=== PATIENT | male | born 1990 | race American Indian/Alaskan Native ===

== ENCOUNTER 2019-08-10 02:42 | Emergency (ER) | payer OTHER ==
--- NOTE | 2019-08-10 03:57 | XRay Report ---
CHEST 2 VIEWS INDICATION / CLINICAL INFORMATION: Dry cough SOB 1-2 weeks. COMPARISON: None available. FINDINGS: SUPPORT DEVICES: None. HEART / MEDIASTINUM: No significant abnormality. LUNGS / PLEURA: No significant pulmonary or pleural abnormality. No pneumothorax. ADDITIONAL FINDINGS: No significant additional findings. IMPRESSION: 1. No acute findings. Signer Name: Herve Campa MD Signed: 08/10/2019 3:52 AM Workstation Name: [id number]
--- NOTE | 2019-08-10 06:34 | Emergency Department Report ---
ED Chest Pain HPI - General Chief Complaint: Chest Pain Stated Complaint: CHEST PAIN Time Seen by Provider: 08/10/19 06:18 Source: patient Mode of arrival: Ambulatory Limitations: No Limitations - History of Present Illness Initial Comments: 28-year-old [place] male presents to the emergency department with complaint of some intermittent midsternal chest pain, dizziness, occasional dry cough and some recent nausea with vomiting. Overall the symptoms going on for the past 3-4 weeks. He says he was seen at a [facility] last week and diagnosed with p neumonia and flu and placed on "multiple medications" but says he is not feeling any better. He says that he will have vomiting after he tries to eat any food but does not have any significant abdominal pain. He is a tobacco smoker but denies any illicit drug use. No recent travel or sick contacts at home. He does not have a primary care physician. Denies any past medical history. No significant family history. - Related Data Previous Rx's Medication Instructions Recorded Last Taken Type Ondansetron [Zofran Odt] 4 mg PO Q8HR PRN #15 tab.rapdis 08/10/19 Unknown Rx Allergies Allergy/AdvReac Type Severity Reaction Status Date / Time No Known Allergies Allergy Unverified 08/10/19 02:53 Heart Score - HEART Score History: Slightly suspicious EKG: Non-specific Age: < 45 Risk factors: 1-2 risk factors Troponin: < normal limit HEART Score: 2 - Critical Actions Critical Actions: 0-3 pts:0.9-1.7%risk of adverse cardiac event.Candidate for discharge ED Review of Systems ROS: Stated complaint: CHEST PAIN Other details as noted in HPI Comment: All other systems reviewed and negative Constitutional: denies: chills, fever Eyes: denies: eye pain, vision change ENT: denies: ear pain, throat pain Respiratory: cough. denies: wheezing Cardiovascular: chest pain. denies: palpitations, edema Gastrointestinal: vomiting. denies: abdominal pain Genitourinary: denies: dysuria, discharge Musculoskeletal: denies: back pain, arthralgia Skin: denies: rash, lesions Neurological: denies: headache, weakness ED Past Medical Hx - Past Medical History Previous Medical History?: No - Surgical History Past Surgical History?: No - Social History Smoking Status: Current Every Day Smoker - Medications Home Medications: Home Medications Medication Instructions Recorded Confirmed Last Taken Type Ondansetron [Zofran Odt] 4 mg PO Q8HR PRN #15 tab.rapdis 08/10/19 Unknown Rx ED Physical Exam - General Limitations: No Limitations - Other Other exam information: GENERAL: The patient is well-developed well-nourished. HENT: Normocephalic. Atraumatic. Patient has moist mucous membranes. EYES: Extraocular motions are intact. NECK: Supple. Trachea is midline. CHEST/LUNGS: Clear to auscultation. There is no respiratory distress noted. HEART/CARDIOVASCULAR: Regular. There is no tachycardia. There is no murmur. ABDOMEN: Abdomen is soft, nontender. Patient has normal bowel sounds. There is no abdominal distention. SKIN: Skin is warm and dry. NEURO: The patient is awake, alert, and oriented. The patient is cooperative. The patient has no focal neurologic deficits. Normal speech. MUSCULOSKELETAL: There is no tenderness or deformity. There is no limitation range of motion. There is no evidence of acute injury. ED Course Vital Signs 08/10/19 08/10/19 02:47 08:54 Temperature 98.4 F Pulse Rate 105 H 90 Respiratory 18 16 Rate Blood Pressure 139/70 Blood Pressure 134/68 [Left] O2 Sat by Pulse 97 98 Oximetry CHAPIN score - Chapin Score Age > 65: (0) No Aspirin use within the Past 7 Days: (0) No 3 or more CAD Risk Factors: (0) No 2 or more Angina events in past 24 hrs: (1) Yes Known CAD with more than 50% Stenosis: (0) No Elevated Cardiac Markers: (0) No ST Deviation Greater than 0.5mm: (0) No CHAPIN Score: 1 ED Medical Decision Making - Lab Data Result diagrams: 08/10/19 07:07 08/10/19 07:09 - EKG Data -: EKG Interpreted by Me EKG shows normal: sinus rhythm, axis (left axis deviation), intervals, QRS complexes (q waves inferior leads), ST-T waves Rate: normal - EKG Data When compared to previous EKG there are: previous EKG unavailable Interpretation: other (sinus, rate 87 bpm, q waves inferior leads) - Radiology Data Radiology results: image reviewed interpreted by me: Chest x-ray does not show any acute process. There are no pleural effusions, obvious pneumonia and there is no pneumothorax. - Medical Decision Making This patient presents to the emergency department with complaint of some intermittent chest pains, vomiting after eating, body aches and some other nonspecific symptoms. His EKG shows some Q waves to the inferior leads but otherwise there is no ST elevation PA or dysrhythmia. His labs have been unremarkable according CBC, metabolic panel and troponin level. Chest x-ray did not show any pleural effusions, pneumothorax, pneumonia, focal consolidation, or any other acute process. The patient does not have any current chest discom fort. The patient is low on the heart and CHAPIN score. Patient is low on the well's score criteria and does not have any risk factors for thromboembolic disease. His vital signs are stable throughout his ED course. For all these reasons the patient appears safe for discharge home at this time. He has been given referrals with primary care and cardiology. He will return to the emergency Department with any worsening of his symptoms or any acute distress. - Differential Diagnosis costochondritis, PA, viral URI, cholelithiasis, pancreatitis Critical Care Time: No Critical care attestation.: If time is entered above; I have spent that time in minutes in the direct care of this critically ill patient, excluding procedure time. ED Disposition Clinical Impression: Intermittent chest pain, Viral syndrome Vomiting Qualifiers: Vomiting type: unspecified Vomiting Intractability: non-intractable Nausea presence: unspecified Qualified Code(s): R11.10 - Vomiting, unspecified Disposition: DC-01 TO HOME OR SELFCARE Is pt being admited?: No Condition: Stable Instructions: Chest Pain (ED), Acute Nausea and Vomiting (ED), Viral Syndrome (ED) Additional Instructions: Please follow-up with a primary care physician in the next few days. I'm giving you a referral for a local heart doctor, Dr. Cid, to follow up regarding your intermittent chest pains. Return to the emergency Department with any worsening of your symptoms or any acute distress. Prescriptions: Ondansetron [Zofran Odt] 4 mg PO Q8HR PRN #15 tab.rapdis PRN Reason: Nausea Referrals: PRIMARY CARE, [Primary Care Provider] - 2-3 Days MARQUISE BATISTA MD [Staff Physician] - 2-3 Days MEENU CID MD [Staff Physician] - 2-3 Days [facility] [Outside] - 2-3 Days Time of Disposition: 08:28
[2019-08-10 07:52] LABS: Basophils % (Auto) 0.2 % (0.0-1.8); Eosinophils % (Auto) 0.1 % (0.0-4.3); Hematocrit 32.6 % (35.5-45.6); Lymphocytes # (Auto) 0.7 K/mm3 (1.2-5.4); Lymphocytes % (Auto) 14.3 % (13.4-35.0); Mean Corpuscular HGB Conc 34 % (32-34); Mean Corpuscular Volume 86 fl (84-94); Monocytes # (Auto) 0.4 K/mm3 (0.0-0.8); Monocytes % (Auto) 7.2 % (0.0-7.3); Platelet Count 359 K/mm3 (140-440); Red Blood Count 3.81 M/mm3 (3.65-5.03); Red Cell Distribution Width 13.3 % (13.2-15.2)
[2019-08-10 08:02] LABS: Alanine Aminotransferase 14 units/L (7-56); Albumin 3.6 g/dL (3.9-5); BUN/Creatinine Ratio 19; Blood Urea Nitrogen 15 mg/dL (9-20); Calcium 8.8 mg/dL (8.4-10.2); Hemolysis Index 12
[2019-08-10] MEDS ORDERED: KETOROLAC 30 MG/1 ML INJ IM ONE (08:31)
[2019-08-10 08:55] VITALS: BP 134/68
== END 2019-08-10 08:54 | disposition home or self-care (01) ==
LOC: ED 02:42
DX: R07.89 Other chest pain (principal); B34.9 Viral infection, unspecified; F17.200 Nicotine dependence, unspecified, uncomplicated; Z79.899 Other long term (current) drug therapy
CPT/HCPCS: 36415; 71046; 80053; 83690; 84484; 85025; 93005; 93010; 96372; 99283; J1885